=== PATIENT | female | born 1990 | race Caucasian/White ===

== ENCOUNTER 2019-05-08 13:33 | Emergency (ER) | payer OTHER ==
[2019-05-08 13:56] VITALS: BP 134/78
--- NOTE | 2019-05-08 14:28 | UC ---
Throat Pain/Nasal Daryl HPI - HPI Summary HPI Summary: CHIEF COMPLAINT and HPI: This is a 28-year-old with multiple complaints including ear congestion, palpitations, and anxiety. This palpitation condition began approximately 2 years ago. However, in the last 2 days she has noticed substernal chest discomfort lasting from 2-5 minutes. It's worse in the evening and night when she lies down. She describes it as pressure. It does not radiate to her arms or jaw. She denies sweating, nausea, or pain going through to her back. She denies a history of cardiovascular disease or significant cardiovascular disease in her family. She is subject to significant anxiety and does drink coffee. She has noted a "heavy heartbeat", sometimes at work. The chest discomfort is described as mild. In the urgent care center, there is no chest discomfort. on arrival, EKG showed a sinus rhythm without ischemia. VITAL SIGNS & SaO2 REVIEWED. Within normal limits unless noted here.134/78 NURSES NOTE REVIEWED. "Two days of pressure in both ears, now has sinus pressure and drainage. pt also feels palpitations at night" - History of Current Complaint Chief Complaint: UCGeneralIllness Stated Complaint: SINUS CONGESTION, AND EAR ACHE Time Seen by Provider: 05/08/19 14:21 Hx Last Menstrual Period: [id number] Pain Intensity: 2 - Allergies/Home Medications Allergies/Adverse Reactions: Allergies Allergy/AdvReac Type Severity Reaction Status Date / Time No Known Allergies Allergy Verified 05/08/19 13:57 Home Medications: Home Medications FLUoxetine* [PROzac*] 10 mg PO DAILY 05/08/19 [History Confirmed 05/08/19] Naproxen Sodium [Aleve] 220 mg PO Q12H 05/08/19 [History Confirmed 05/08/19] PMH/Surg Hx/FS Hx/Imm Hx - Additional Past Medical History Additional PMH: PAST MEDICAL HISTORY- CHRONIC and RECURRENT HEALTH PROBLEM LIST REVIEWED. Information relevant to present complaint: anxiety VISIT HISTORY REVIEWED. MEDICATIONS & ALLERGIES REVIEWED. HYPERTENSION STATUS:. The patient does not have a history of hypertension. 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 Previously Healthy: Yes - Surgical History Surgical History: Yes Surgery Procedure, Year, and Place: Tonsils - Social History Alcohol Use: Occasionally Substance Use Type: None Smoking Status (MU): Never Smoked Tobacco Review of Systems All Other Systems Reviewed And Are Negative: Yes Constitutional: Positive: Negative Respiratory: Positive: Negative Cardiovascular: Positive: Palpitations - intermittent, Other - chest pressure lasting 3-5 minutes intermittently and irregularly. Gastrointestinal: Positive: Negative Genitourinary: Positive: Negative Is Patient Immunocompromised?: No Physical Exam - Summary Physical Exam Summary: Appearance: The patient is well-appearing, is in no pain or distress, and is well-nourished. Eyes: Conjunctiva are clear. Pupils are equal and reactive to light and accommodation. Extra ocular muscle movement is intact. ENT: The hearing is grossly normal, the pharynx is normal, and the TMs are normal. There is no muffled or hoarse voice. No stridor. Neck: The neck is supple and there is no lymphadenopathy. Respiratory: The chest is non-tender to palpation and without crepitus. The lungs are clear, there are normal breath sounds, and there is no respiratory distress. No wheezes, rales or rhonchi. Cardiovascular: Heart sounds reveal a regular rate and rhythm. There are no clicks, rubs or murmurs. There are no carotid bruits or thrills. Circulation is grossly intact. Abdomen: The abdomen is soft and nontender. There is no organomegaly. Bowel sounds are present and within normal limits. No point tenderness at McBurneys point. No CVA tenderness. Musculoskeletal: Strength is intact. The patient moves all extremities. Neurological: The patient is alert. Motor and sensory are examination grossly intact. Speech is normal. Psychological: The patient displays age appropriate behavior, and is conversant. GCS=15. Skin: Negative for rashes. Summary: Normal physical examination. Triage Information Reviewed: Yes Vital Signs: Initial Vital Signs Temp 98.4 F 05/08/19 13:52 Pulse 63 05/08/19 13:52 Resp 16 05/08/19 13:52 BP 134/78 05/08/19 13:52 Pulse Ox 100 05/08/19 13:52 Throat Pain/Nasal Course/Dx - Course Course Of Treatment: This is a 28-year-old with multiple complaints including ear congestion, palpitations, and anxiety. his condition began approximately 2 years ago. However, in the last 2 days she has noticed substernal chest discomfort lasting from 2-5 minutes. It's worse in the evening and night when she lies down. She describes it as pressure. It does not radiate to her arms or jaw. She denies sweating, nausea, or pain going through to her back. She denies a history of cardiovascular disease or significant cardiovascular disease in her family. She is subject to significant anxiety and does drink coffee. She has noted a "heavy heartbeat", sometimes at work. The chest discomfort is described as mild. In the urgent care center. There is no chest discomfort. on arrival, EKG showed a sinus rhythm without ischemia. Physical examination is otherwise unremarkable. My differential includes palpitations secondary to anxiety or peptic disease. I discussed her condition with the patient at length. She will follow up with her provider. A Holter monitor may be appropriate. She will also try an antacid prior to bed. She will also cutdown on stimulants including caffeine. - Differential Dx/Diagnosis Provider Diagnosis: Palpitations, Anxiety Discharge ED - Sign-Out/Discharge Documenting (check all that apply): Patient Departure All imaging exams completed and their final reports reviewed: No Studies - Discharge Plan Condition: Stable Disposition: HOME Patient Education Materials: Heart Palpitations (DC) Referrals: Ja NICHOLS,Elke Scott [Primary Care Provider] - Additional Instructions: WE DISCUSSED: PLEASE SEEK CARE AT THE EMERGENCY DEPARTMENT IF SYMPTOMS WORSEN OR IF NEW SYMPTOMS DEVELOP. FOLLOW UP WITH YOUR PRIMARY CARE PHYSICIAN IF CONDITION CONTINUES BEYOND 3 DAYS WITHOUT IMPROVEMENT. YOUR DIAGNOSIS IS: CONGESTION, PALPITATIONS, ANXIETY YOUR PRESCRIPTION RECOMMENDATION IS: NONE OTHER INSTRUCTIONS: Hypertension Discharge Instructions: Your blood pressure reading today was 137/78, indicating BORDERLINE HYPERTENSION. Follow-up with your primary care provider within 4 weeks for blood pressure check and appropriate recommendations and treatment, as needed. FOR PAIN AND/OR SLEEP: For pain: Ibuprofen (Motrin and other brand names) 400-600mg PLUS acetaminophen (Tylenol and other brand names) 500mg - 1000mg every 8 hours. Because your chest discomfort could be related to your esophagus or excess acid , take an antacid one hour before sleep. Also: cut down or cut out anything with coffee. See you caregiver for follow up; you might benefit from a heart monitor to see if you have palpitations. Your EKG was normal, but if you have continuing chest discomfort, go to the ED for further evaluation. Continue your Prozac for anxiety. FOR CONGESTION: stand under the shower stream to loosen secretions; use a vaporizer; stay away from smoke or irritants; use a saline nasal spray, keep flow of moving in your nostrils and sinuses. Drink warm fluids including tea and honey. - Billing Disposition and Condition Condition: STABLE Disposition: Home
== END 2019-05-08 15:06 | disposition home or self-care (01) ==
LOC: UCEAST 13:33
DX: F41.9 Anxiety disorder, unspecified (principal); R00.2 Palpitations
CPT/HCPCS: 93005; 99201; G0463